=== PATIENT | male | born 2000 | race Caucasian/White ===

== ENCOUNTER 2022-12-26 17:48 | Emergency (ER) | payer BC, SELFPAY ==
[2022-12-26 17:48] VITALS: BP 149/80; PULSE 65; RESP 18; TEMP 37.3; O2SAT 95
--- NOTE | 2022-12-26 18:31 | ED.GENADUL_ITS ---
Discharge Plan Disposition Patient Disposition: Home Condition: Improving Discharge Details Chief Complaint: Allergic Clinical Impression: Allergic reaction Primary Care Provider: None,None ED Provider: Lionel Wyatt Discharge Instructions Instructions: Anaphylaxis (ED), General Allergic Reaction (ED) Additional Instructions: Please return to the emergency department for any worsening symptoms. Medical Decision Making 22-year-old male history of allergy to bees presents after being stung in the forearm by a bee, resulting in localized itching and nausea, no chest pain or shortness of breath, patient has normal voice tolerating secretions, hemodynamically stable, localized induration to right forearm, oropharynx unremarkable no stridor. IM epinephrine already given before arrival, Zofran and Benadryl also given. Will load Zofran and famotidine. Close reassessment of symptoms. Patient is eager to return home. Will observe after meds close reassessment 19: 01 patient feeling much better, wants to leave HPI General Date/Time Provider Initiated Documentation: 12/26/22 18:19 . 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 Patient already feeling much better. No trouble breathing or swallowing General Stated Complaint: Allergic ZENY: 3 Review of Systems Narrative: Review of Systems Constitutional: negative Eyes: negative ENT: negative Cardiovascular: negative Respiratory: negative Gastrointestinal: Nausea : negative Musculoskeletal: negative Skin: Itching Neurologic: negative Psych: negative PFSH All Active Problems (Updated 12/26/22 @ 19:02 by Lionel Wyatt MD) Allergic reaction (Acute) Social History Smoking/Tobacco Use Status: Never Smoking risk assessment performed?: Yes Alcohol Intake: current Alcohol Intake frequency: a few times a week Do you feel safe at home: Yes Do you feel safe in your relationship?: Yes Exam Narrative Exam Narrative: Physical Examination General: alert, awake, cooperative, resting comfortably, no acute distress HEENT: normocephalic, atraumatic; PERRL, EOM intact, conjunctiva normal; no nasal discharge; moist mucous membranes, oral and pharyngeal mucosa normal, tolerating secretions; normal voice no stridor Neck: supple, trachea midline; full ROM Chest: normal to inspection Respiratory: normal respiratory effort, speaking in full sentences, clear to auscultation, no wheezing, rales or rhonchi Cardiac: regular rate, regular rhythm, S1S2 intact, no murmurs rubs or gallops GI: abdomen soft, non-tender, non-distended; no palpable mass or hepatosplenomegaly Skin: Mild localized induration to dorsal aspect of right forearm Neuro: AAOx3, normal speech, moving all extremities Psych: Appropriate mood and affect Course Vital Signs Vital signs: Vital Signs Temperature 37.3 C 12/26/22 17:48 Pulse 65 12/26/22 17:48 Respiratory Rate 18 12/26/22 17:48 Blood Pressure 149/80 H 12/26/22 17:48 Pulse Oximetry 95 12/26/22 17:48 Temperature 37.3 C 12/26/22 17:48 Temperature Source Oral 12/26/22 17:48 Pulse 65 12/26/22 17:48 Respiratory Rate 18 12/26/22 17:48 Respiratory Effort Normal, Non-Labored 12/26/22 17:51 Blood Pressure 149/80 H 12/26/22 17:48 Blood Pressure Position Sitting 12/26/22 17:48 Pulse Oximetry 95 12/26/22 17:48 Oxygen Delivery Method Room Air 12/26/22 17:48 Oxygen Flow Rate 0 12/26/22 17:48
[2022-12-26] MEDS: Famotidine 20 MG TAB PO (18:39)
[2022-12-26] MEDS: Dexamethasone 10 MG/ML VIAL PO (18:39)
[2022-12-26 19:11] VITALS: BP 128/78; PULSE 75; RESP 20; TEMP 36.8; O2SAT 99
== END 2022-12-26 19:13 | disposition home or self-care (01) ==
PROVIDERS: Emergency Provider Emergency Medicine
DX: T78.40XA Allergy, unspecified, initial encounter (principal)
CPT/HCPCS: 99283; J1100